=== PATIENT | male | born 1965 | race Caucasian/White ===

== ENCOUNTER 2019-01-19 17:51 | Emergency (ER) | payer OTHER, BC ==
[~2019-01-19] VITALS: Ht 175.3 cm; Wt 86.2 kg
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
[2019-01-19 19:28] VITALS: BP 146/95
== END 2019-01-19 19:28 | disposition home or self-care (01) ==
LOC: EDUNIT# 17:51 → ER 17:52
DX: S80.01XA Contusion of right knee, initial encounter (principal); S60.222A Contusion of left hand, initial encounter; V49.50XA Passenger injured in collision with unspecified motor vehicles in traffic accident, initial encounter
CPT/HCPCS: 73130; 73562

== ENCOUNTER 2019-02-13 06:19 | Outpatient (CLI) | payer BC ==
[~2019-02-13] VITALS: Ht 175.3 cm; Wt 86.2 kg
== END 2019-02-13 11:57 | disposition home or self-care (01) ==
LOC: PREOP 06:19
PROVIDERS: ATTEND Surgery
DX: Z01.818 Encounter for other preprocedural examination (principal)

== ENCOUNTER 2019-02-15 08:20 | Day surgery (SDC) | payer BC, OTHER ==
[~2019-02-15] VITALS: Ht 175.3 cm; Wt 86.2 kg
[2019-02-15] MEDS ORDERED: NS IV 500 ML 500 ML IV PRN (08:44)
[2019-02-15] MEDS ORDERED: HURRICAINE EXT TUBE (BENZOCAINE) XX PRN (08:45)
[2019-02-15] MEDS ORDERED: MIDAZOLAM 2 MG/2 ML (VERSED) VIAL IVP ONE (08:45)
[2019-02-15] MEDS ORDERED: fentaNYL INJECTION 100 MCG/2 ML AMP IVP ONE (08:45)
[2019-02-15] MEDS ORDERED: LIDOCAINE JELLY 2% 6 ML SYRINGE MM PRN (08:45)
[2019-02-15 08:51] VITALS: BP 133/93
--- NOTE | 2019-02-15 09:12 | Conscious Sedation/ASA ---
Conscious Sedation Pre-Proced Time 09:00 ASA Score 2 For ASA 3 and 4: Consider anesthesia and medical clearance. Also, for patients with a history of failed moderate sedation consider anesthesia. Airway Lungs Heart ASA score ASA 1: a normal healthy patient ASA 2: a patient with a mild systemic disease (mid diabetes, controlled hypertension, obesity ASA 3: a patient with a severe systemic disease that limits activity (angina , COPD, prior Myocardial infarction) ASA 4: a patient with an incapacitating disease that is a constant threat to life (CHF, renal failure) ASA 5: a moribund patient not expected to survive 24 hrs. (ruptured aneurysm) ASA 6: a declared brain- patient whose organs are being harvested. For emergent operations, add the letter E after the classification Mallampati Classification Grade 2 Sedation Plan Analgesia, Amnesia, Plan communicated to team members, Discussed options with patient/fam, Discussed risks with patient/fam The patient is an appropriate candidate to undergo the planned procedure, sedation, and anesthesia. The patient immediately re-assessed prior to indication. AILYN DILLON MD Feb 15, 2019 09:12
--- NOTE | 2019-02-15 09:13 | Progress Note-Pre Operative ---
Pre-Operative Progress Note H&P Reviewed The H&P was reviewed, patient examined and no changes noted. Date Seen by Provider: Feb 15, 2019 Time Seen by Provider: 09:00 Date H&P Reviewed: Feb 15, 2019 Time H&P Reviewed: 09:00 Pre-Operative Diagnosis: GERD, anemia, family hx colon ca AILYN DILLON MD Feb 15, 2019 09:13
[2019-02-15] MEDS ORDERED: ONDANSETRON 4 MG/2 ML (SDV) Z0FRAN IV PRN (09:15)
[2019-02-15] MEDS ORDERED: ACETAMINOPHEN 325 MG TABLET PO PRN (09:15)
[2019-02-15] MEDS ORDERED: HYDROcodone/APAP 5 MG/325 MG (LORTAB) TAB PO PRN (09:15)
[2019-02-15] MEDS ORDERED: morphine INJ 10 MG/ML 1ML (SYR OR VIAL) IV PRN (09:15)
--- NOTE | 2019-02-15 09:15 | Discharge Inst-Surgical ---
D/C Lap Instructions-SANTANA Follow Up 5yr Activity as tolerated High Fiber Diet 25g or more per day Avoid Alcohol, Caffeine, Spicy [place] and Acid foods. Drink 64 fluid oz or more of fluids per day. Symptoms to Report: Fever over 101 degree F, Nausea/Vomiting If any problems/questions: Contact your physician or go to Emergency Room AILYN DILLON MD Feb 15, 2019 09:15
[2019-02-15] MEDS ORDERED: NS IV 500 ML 500 ML ONE (09:37)
[2019-02-15] MEDS ORDERED: MIDAZOLAM 2 MG/2 ML (VERSED) VIAL ONE ×7 (09:54→10:42)
[2019-02-15] MEDS ORDERED: fentaNYL INJECTION 100 MCG/2 ML AMP ONE (09:54)
[2019-02-15] MEDS ORDERED: LIDOCAINE JELLY 2% 6 ML SYRINGE ONE (09:55)
[2019-02-15] MEDS ORDERED: HURRICAINE EXT TUBE (BENZOCAINE) ONE (09:55)
--- NOTE | 2019-02-15 11:22 | Progress Note-Post Operative ---
Post-Operative Progess Note Surgeon (s)/Shake Sawyer (s) Surgeon AILYN DILLON MD Shake Sawyer: none Pre-Operative Diagnosis GERD, family hx colon ca Post-Operative Diagnosis reflux esophagitis(stage2), small HH(1-1.5cm), mild-moderate gastritis. mild chronic stage 1 ext and int hemorrhoids, mild sigmoid diverticulosis. Procedure & Operative Findings Date of Procedure 02/15/19 Procedure Performed/Findings EGD with bx. Colonoscopy. Anesthesia Type cs Estimated Blood Loss Estimated blood loss (mL): minimal Specimens/Packing Specimens Removed ge jxn, antrum AILYN DILLON MD Feb 15, 2019 11:22
[2019-02-15 11:30] VITALS: BP 102/67
[2019-02-15 12:05] VITALS: BP 104/76
[2019-02-15 12:15] VITALS: BP 104/76
--- NOTE | 2019-02-15 15:36 | OPERATIVE REPORT ---
DATE OF SERVICE: 02/15/2019 ATTENDING PRIMARY CARE PHYSICIAN: Dr. Pham. PREOPERATIVE DIAGNOSIS: Gastroesophageal reflux disease, family history of colon cancer and screening colonoscopy. POSTOPERATIVE DIAGNOSES: Reflux esophagitis stage II, small hiatal hernia approximately 1 to 1.5 cm in size, mild to moderate gastritis, mild chronic stage I external and internal hemorrhoids and mild sigmoid diverticulosis. PROCEDURES: EGD with biopsy and colonoscopy. SURGEON: Ailyn Dillon MD. ANESTHESIA: Conscious sedation. ESTIMATED BLOOD LOSS: Minimal. FINDINGS: As above in the postop. DISPOSITION: The patient tolerated the procedure well. INDICATIONS: The patient is a 53-year-old male, who we have seen before in the past. We have seen him in November of 2012 for an EGD and colonoscopy. We had proceeded with the endoscopy and he was found to have a reflux esophagitis stage II as well as a small hiatal hernia approximately 1 cm in size as well as a moderately severe gastritis and a mild sigmoid diverticulosis. He is here for a followup EGD and colonoscopy. He does have a first degree relative with a history of colon cancer with his father having the disease. He also does have intermittent episodes of epigastric burning sensation as well as crampy pain. He reports that this may be due to stress versus the different foods that he eats. He does take cycd-thx-aqqmwrv omeprazole as well as Zantac which does help the symptoms. He states that in the past few years, this has become slightly more frequent. DESCRIPTION OF PROCEDURE: The patient was brought to the endoscopy suite and laid in the left lateral decubitus position with the head slightly elevated. After adequate IV pain and sedating medications and conscious sedation anesthesia, the mouthpiece was applied. The endoscope was placed in the mouth, visualizing the pharynx and hypopharyngeal region. Vocal cords, epiglottis and vallecula were identified and appeared to be normal. The endoscope was then gently intubated in the esophageal opening and esophagus insufflated. The endoscope was then advanced to the first, second and third portion of the esophagus to the level of the GE junction, a reflux esophagitis stage II was identified. There were no ulcers or strictures identified in this region. A biopsy was taken with forceps with visualization of good hemostasis. The endoscope was then advanced in the stomach and endoscope retroflexed, visualizing a small hiatal hernia 1 to 1.5 cm in size, which did not change from previous size. There was a mild to moderate gastritis. No formal ulcerations, polyps or any neoplasms. A biopsy was taken of the antrum to rule out H. pylori with visualization of good hemostasis. The endoscope was then advanced to the pylorus and the first and second portion of the duodenum, which appeared normal with no distal obstructions. The endoscope was then slowly withdrawn with taking a second look and suctioning of residual air with no additional findings. The patient tolerated this portion of procedure well. We will have him continue with medical management with the necessary lifestyle and diet accommodation including small and more frequent meals, avoidance of eating at night as well as head elevation while lying supine. We also recommended avoidance of caffeinated beverages, spicy, greasy and acidic foods. At this time, he does have any significant conditions, which are relevant to increased acid production and at this time, we will recommend continued izwu-nek-pccgogy acid reducers as needed. Under the same anesthesia, we then proceed with the colonoscopy portion of the procedure. A digital rectal examination was performed, which revealed mild chronic stage I external and internal hemorrhoids, not actively edematous and no bleeding. Normal sphincter tone was felt and there were no palpable masses. Endoscope was then gently insufflated. The prostate gland was palpable and appeared normal. The endoscope was then intubated to the anus and the rectum gently insufflated. The endoscope was then advanced to the valves of Souza of the rectum with no polyps or any neoplasms identified. Endoscope was then advanced to the sigmoid colon where a few mild or early sigmoid diverticula identified. The endoscope was then advanced to the descending, transverse and ascending colon to the cecum. These segments were normal. There were no polyps or any neoplasms identified throughout the colon or rectum. Endoscope was then slowly withdrawn while taking a second look and suctioning of residual air with no additional findings. The patient tolerated the procedure well. We will recommend continued medical management with a high fiber diet with at least 30 grams of fiber per day as well as significant amounts of water on a daily basis to promote soft stools daily. We will recommend a followup colonoscopy in approximately 5 years. Job ID: [id number] DocumentID: [id number] Dictated Date: 02/15/2019 11:18:21 Program Director Group Work Date: 02/15/2019 15:35:46 Dictated By: AILYN DILLON MD [facility]ALTH SYSTEMRosa M
== END 2019-02-15 12:15 | disposition home or self-care (01) ==
LOC: ENDO 08:20
PROVIDERS: ATTEND Surgery
DX: Z12.11 Encounter for screening for malignant neoplasm of colon (principal); K21.0 Gastro-esophageal reflux disease with esophagitis; K44.9 Diaphragmatic hernia without obstruction or gangrene; K29.70 Gastritis, unspecified, without bleeding; K64.0 First degree hemorrhoids; K57.30 Diverticulosis of large intestine without perforation or abscess without bleeding; Z80.0 Family history of malignant neoplasm of digestive organs

== ENCOUNTER 2022-10-04 07:50 | Emergency (ER) | payer BC ==
[~2022-10-04] VITALS: Ht 178 cm; Wt 90.7 kg
[2022-10-04] MEDS ORDERED: SUCRALFATE 1 GM (CARAFATE) TAB PO ONE (08:00)
[2022-10-04] MEDS ORDERED: LIDOCAINE 2% VISCOUS 15 ML UDC PO ONE (08:00)
[2022-10-04] MEDS ORDERED: ANTACID SUSP 30 ML UDC (MYLANTA) PO ONE (08:00)
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
[2022-10-04 08:14] LABS: BASOPHILS # (AUTO) 0.1 10^3/uL (0.0-0.1); BASOPHILS % (AUTO) 1 % (0-10); EOSINOPHILS # (AUTO) 0.2 10^3/uL (0.0-0.3); EOSINOPHILS % (AUTO) 3 % (0-10); HEMATOCRIT 48 % (40-54); HEMOGLOBIN 17.1 g/dL (13.3-17.7); LYMPHOCYTES % (AUTO) 28 % (12-44); MEAN CORPUSCULAR HEMOGLOBIN 32 pg (25-34); MEAN CORPUSCULAR HGB CONC 36 g/dL (32-36); MEAN CORPUSCULAR VOLUME 88 fL (80-99); MEAN PLATELET VOLUME 9.8 fL (9.0-12.2); MONOCYTES # (AUTO) 0.7 10^3/uL (0.0-1.0); MONOCYTES % (AUTO) 9 % (0-12); NEUTROPHILS # (AUTO) 4.3 10^3/uL (1.8-7.8); NEUTROPHILS % (AUTO) 59 % (42-75); PLATELET COUNT 201 10^3/uL (130-400); WHITE BLOOD COUNT 7.3 10^3/uL (4.3-11.0)
--- NOTE | 2022-10-04 08:21 | Diagnostic Imaging Report ---
INDICATION: Epigastric pain and left arm pain. FINDINGS: The heart size, mediastinal configuration, and pulmonary vascularity are within normal limits. There is no pleural effusion, pneumothorax, or pneumonia. The osseous structures are unremarkable. IMPRESSION: No acute cardiopulmonary abnormality. Dictated by: Dictated on workstation # [id number]
[2022-10-04 08:25] LABS: ALBUMIN 4.4 GM/DL (3.2-4.5); POTASSIUM 3.6 MMOL/L (3.6-5.0)
[2022-10-04 08:27] LABS: CALCIUM 10.2 MG/DL (8.5-10.1)
[2022-10-04 08:28] LABS: TOTAL PROTEIN 7.4 GM/DL (6.4-8.2)
[2022-10-04 08:30] LABS: BILIRUBIN,TOTAL 1.1 MG/DL (0.1-1.0)
[2022-10-04 08:31] LABS: CREATININE SERUM 1.05 MG/DL (0.60-1.30)
[2022-10-04] MEDS ORDERED: ASPIRIN 81 MG CHEW (CHILDREN'S ASA) PO ONE (08:45)
[2022-10-04 09:11] VITALS: BP 154/92
== END 2022-10-04 09:11 | disposition left against medical advice (07) ==
LOC: EDUNIT# 07:50 → ER 07:52
DX: R07.9 Chest pain, unspecified (principal); R77.8 Other specified abnormalities of plasma proteins
CPT/HCPCS: 36415; 71045; 80053; 83690; 84484; 85025; 93005